=== PATIENT | male | born 1985 | race Caucasian/White ===

== ENCOUNTER → 2021-11-11 | Outpatient (CLI) | payer SELFPAY | LOC: M WUC 13:17 | PROVIDERS: ATTEND Physician Assistant | DX: R06.02 Shortness of breath (principal) ==

== ENCOUNTER 2023-04-11 21:13 | Emergency (ER) | payer BC, SELFPAY ==
[~2023-04-11] VITALS: Ht 172.7 cm; Wt 264.0 kg
[2023-04-11] MEDS ORDERED: ERGO500029 (21:32)
[2023-04-11] MEDS ORDERED: LISI10TA24 (21:32)
[2023-04-11] MEDS ORDERED: HYDR12.55 (21:32)
[2023-04-11] MEDS ORDERED: ISOVUE-370 76% 100ML VIAL As Ordered ONE (21:56)
[2023-04-11 23:54] VITALS: BP 123/56
== END 2023-04-11 23:56 | disposition home or self-care (01) ==
LOC: M ED 21:13
DX: R60.0 Localized edema (principal); I28.8 Other diseases of pulmonary vessels; I10 Essential (primary) hypertension; E66.9 Obesity, unspecified; F90.9 Attention-deficit hyperactivity disorder, unspecified type; F95.2 Tourette's disorder; K76.0 Fatty (change of) liver, not elsewhere classified
CPT/HCPCS: 71275; 93005; 93041; 93970; 94760; 99284; Q9967

== ENCOUNTER → 2023-05-22 | Outpatient (CLI) | payer BC ==
[~2023-05-22] MED LIST: ERGO500029; HYDR12.55; LISI10TA24
== END ==
LOC: M CARPUL 13:59
PROVIDERS: ATTEND Internal Medicine Cardiovascular Disease
DX: I42.2 Other hypertrophic cardiomyopathy (principal); I51.7 Cardiomegaly; I77.810 Thoracic aortic ectasia

== ENCOUNTER → 2023-11-02 | Outpatient (CLI) | payer BC | LOC: M SLEEP 20:00 | PROVIDERS: ATTEND Internal Medicine Pulmonary Disease | DX: G47.33 Obstructive sleep apnea (adult) (pediatric) (principal) ==